=== PATIENT | female | born 1980 | race Caucasian/White ===

== ENCOUNTER 2019-02-05 05:00 | Day surgery (SDC) | payer OTHER ==
[2019-02-03 10:34] LABS: HEMATOCRIT 38.4 % (36.0-48.0); HEMOGLOBIN 12.5 g/dL (12-16); LYMPHOCYTES 30.1 % (15-50); MCH 26.2 pg (26.0-34.0); MCHC 32.6 g/dL (31.0-37.0); MCV 80.3 fL (80.0-100.0); NEUTROPHILS 65.4 % (40-80); PLATELET COUNT 234 10x3/uL (130-400); RBC 4.78 10x6/uL (4.00-5.40); WBC 5.7 10x3/uL (4.8-10.8)
[2019-02-03 10:37] LABS: CALC OSMOLALITY 278 mosm/kg (275-300); CALCIUM 8.6 mg/dL (8.5-10.1); CARBON DIOXIDE 22.4 mmol/L (21.0-32.0); CHLORIDE - SERUM 109 mmol/L (98-107); CREATININE - SERUM 0.7 mg/dL (0.6-1.3); GLUCOSE 99 mg/dL (74-106); POTASSIUM - SERUM 4.1 mmol/L (3.5-5.1); SODIUM 141 mmol/L (136-145); UREA NITROGEN 7 mg/dL (7-18); eGFR NON AFRICAN AMERICAN > 90 mL/min (90-120)
[2019-02-05] VITALS (13 sets, daily range): BP systolic 120–145; BP diastolic 63–87; Ht 165.1 cm; Wt 106.8 kg
[~2019-02-05] VITALS: Ht 165.1 cm; Wt 106.8 kg
[~2019-02-05 05:00] MED LIST: LISINOPRIL10 MG PO; MEDROXYPROGESTERONE IM
[2019-02-05] MEDS ORDERED: ATIVAN1 MG PO ×2 (05:55→05:56)
[2019-02-05] MEDS ORDERED: MINOCIN50 MG PO (05:57)
[2019-02-05 06:11] LABS: HCG URINE NEGATIVE (NEGATIVE)
--- NOTE | 2019-02-05 10:24 | NUR ---
1012 RECEIVED PATIENT WITH OPA INPLACE. RESPIRATIONS DEEP AND EVEN.
--- NOTE | 2019-02-05 10:25 | NUR ---
1024 OPA DISCONTINUED, PATIENT HOLDS HEAD UP < 10 SECONDS AND RESPONDS TO VERBAL COMMANDS
--- NOTE | 2019-02-05 11:20 | NUR ---
RECEIVED PATIENT FROM BY BED TO 1273, POST TOTAL LAP HYST.WITH BILATERAL SALPINGECTOMY BY DR. WHITTAKER, REPORT FROM RAVI PALMER, RN. PATIENT AWAKE, ALERT, ORIENTED X3. 3 LAP INCISIONS NOTED TO ABDOMEN, C/D/I, ICE PACK APPLIED TO INCISIONS OVER GOWN, ABD PALPATES SOFT. PT DENIES N/V, SOB OR DIFFICUTY BREATHING, RATING PAIN 5/10 VAGINAL PAIN/PRESSURE. MED ADM RECORD REVIEWED WITH PT. GARCIA CATH NOTED TO HAVE 200ML MILK-COLORED URINE IN BAG WITH 100CC LIGHT YELLOW URINE IN UROMETER. PT. STATES SHE WANTS CATHETER OUT NOW. SEE FLOWSHEET FOR COMPLETE ASSESSMENT. OXYGEN REMOVED PATIENT WAS BROUGHT DOWN FROM RECOVERY ON 2L PER NC. SIDE RAILS UP X2, CALL LIGHT AND PHONE WITHIN REACH, FAMILY CALLED TO ROOM.
--- NOTE | 2019-02-05 12:20 | NUR ---
PT REQUESTS TO GET UP TO THE BATHROOM TO TRY TO PEE. IVF'S STOPPED, AND IV SL FOR ASSISTANCE WITH AMBULATION, PT THEN ASSISTED UP TO BR, GAIT SLOW AND STEADY. CALL LIGHT AND PHONE WITHIN REACH.
--- NOTE | 2019-02-05 12:35 | NUR ---
ASSISTED BACK TO BED. GAIT STEADY. PATIENT FEELING NAUSEATED. SPRITE GIVEN TO SIP. IV RECONNECTED TO PUMP INFUSING AT 125CC/HR.
--- NOTE | 2019-02-05 13:22 | NUR ---
RESTING IN BED, FAMILY AT BEDSIDE. NAUSEA SOME BETTER, BUT MOVEMENT MAKES THE NAUSEA WORSE. ZOFRAN 4MG GIVEN IV PER ORDERS.
--- NOTE | 2019-02-05 14:30 | NUR ---
PT REQUESTS TO GET UP TO THE BATHROOM, IV SL, PT ASSISTED UP TO BR, GAIT SLOW AND STEADY, PT VOIDS 300 ML'S LIGHT YELLOW URINE IN [place] HAT, PERICARE DONE WITH WARM WET WASHCLOTHS, PERIPADS/PANTIES PROVIDED. PT BACK TO BED. PT REPORTS SHE IS BURPING, BUT HAS NOT PASSED GAS YET. PT REPORTS SHE IS NO LONGER NAUSEATED. PT DENIES ALL OTHER NEEDS AT THIS TIME. SRUP X2, CALL LIGHT AND PHONE WITHIN REACH.
[2019-02-05 14:37] LABS: BASOPHILS 0.1 % (0-2); EOSINOPHILS 0 % (0-7); HEMOGLOBIN 12.2 g/dL (12-16); IMMATURE GRANULOCYTES 0.5 % (0-5); LYMPHOCYTES 8.1 % (15-50); MCH 25.8 pg (26.0-34.0); MCHC 31.3 g/dL (31.0-37.0); MCV 82.5 fL (80.0-100.0); MEAN PLATELET VOLUME 10.9 fL (7.4-10.4); MONOCYTES 3.6 % (2-11); NEUTROPHILS 87.7 % (40-80); PLATELET COUNT 166 10x3/uL (130-400); RBC 4.73 10x6/uL (4.00-5.40); RDW 14.1 % (11.5-14.5); WBC 8.3 10x3/uL (4.8-10.8)
--- NOTE | 2019-02-05 15:40 | NUR ---
ASSISTED TO BATHROOM TO VOID AND BACK TO BED. NO DIZZINESS OR NAUSEA. PAIN MEDICINE GIVEN PER PATIENT REQUEST. CLEAR LIQUIDS GIVEN--JELLO, SPRITE, AND APPLE JUICE. IV SALINE LOCKED.
--- NOTE | 2019-02-05 16:45 | NUR ---
GAMAL GARCIA CRNA ON UNIT AND NOTIFIED OF PT'S C/O RIGHT EYE PAIN AND WATERING. SRNA STUDENT IN ROOM TO EVALUATE PT.
--- NOTE | 2019-02-05 18:41 | NUR ---
SITTING UP IN BED. TOLERATED REGULAR DIET WELL. FAMILY AT BEDSIDE. NO COMPLAINTS OR NEEDS AT THIS TIME.
--- NOTE | 2019-02-05 19:38 | NUR ---
RECEIVED REPORT FROM DAY SHIFT
--- NOTE | 2019-02-05 19:50 | NUR ---
ASSESSMENT PER FLOW SHEET, VS OBTAINED, SALINE LOCK IN LEFT FA INTACT WITH NO REDNESS OR EDEMA, UMB INC AND 2 LOWER LAP INC WITH DERMABOND CDI, FRESH ICE PACK TO ABD, PT DENIES FLATUS, NO BM, VOIDING WITH NO DIFFICULTY, AND REPORTS SCANT VAG BLEEDING, EMPTIED 200 MLS OF DARK YELLOW URINE FROM [place] HAT AT THIS TIME, PT RATES INC PAIN AND CRAMPING 09/18, WILL CHECK ON PAIN MED, PT REQUESTS TO AMB AT THIS TIME
--- NOTE | 2019-02-05 20:10 | NUR ---
PT AMB, GAIT STEADY, WITH THIS RN AND SPOUSE AT SIDE, PT INFORMED THAT I WILL ADM PAIN MED WHEN BACK TO ROOM, PT VERBALIZES UNDERSTANDING
--- NOTE | 2019-02-05 20:20 | NUR ---
PT BACK IN ROOM, CHANGED EXTENSION ON SALINE LOCK TO A MINI BORE EXTENSION, FLUSHED WITH 10MLS OF NS WITH NO DIFFCULTY, ADM TORADOL SIVP PER MD ORDERS, SEE EMAR, FLUSHED WITH 10MLS OF NS TO FLUSH, ADM PERCOCET PO PER MD ORDERS, SEE EMAR, FRESH H20 SERVED, PT REFUSES SCD'S AT THIS TIME, PARTIAL BEDDING CHANGE, BEDDING PROVIDED TO SPOUSE, PT DENIES FURTHER NEEDS
--- NOTE | 2019-02-05 21:40 | NUR ---
PT AMB IN HA, GAIT STEADY, WITH SPOUSE, PT RATES PAIN 5/10, DENIES NEEDS AT THIS TIME
--- NOTE | 2019-02-05 21:45 | NUR ---
PT BACK TO ROOM
--- NOTE | 2019-02-05 22:31 | NUR ---
PT RESTING IN BED, VISITING WITH FAMILY MEMBER, SPOUSE IN ROOM, PT DENIES NEEDS AT THIS TIME
--- NOTE | 2019-02-05 23:15 | NUR ---
PT GETTING READY FOR BED, VS OBTAINED, SCD'S APPLIED AND WORKING PROPERLY, PT DENIES FURTHER NEEDS AT THIS TIME
--- NOTE | 2019-02-06 00:45 | NUR ---
PT AROUSES TO OPENING OF DOOR, SCD'S REMOVED, PT UP TO BR, GAIT STEADY, VOIDED WITH NO DIFFICULTY, PT BACK TO BED, SCD'S RECONNECTED AND WORKING PROPERLY, C/O INC PAIN, ADM PERCOCET PO AND EYE DROPS IN LEFT EYE PER MD ORDERS, SEE EMAR, FRESH ICE PACK TO INC, PT DENIES FURTHER NEEDS
--- NOTE | 2019-02-06 01:31 | NUR ---
PT RESTING WITH EYES CLOSED, RESP QUIET, NO DISTRESS NOTED, LEFT UNDISTURBED AT THIS TIME
--- NOTE | 2019-02-06 02:44 | NUR ---
PT RESTING WITH EYES CLOSED, RESP QUIET, NO DISTRESS NOTED, LEFT UNDISTURBED AT THIS TIME
--- NOTE | 2019-02-06 02:49 | NUR ---
REPORT TO MCKENNA VÁSQUEZ RN
--- NOTE | 2019-02-06 03:30 | NUR ---
PT AMBULATING IN HALLWAY. ICE PROVIDED PER PT REQUEST, NO FURTHER NEEDS IDENTIFIED. WILL CONTINUE TO MONITOR
--- NOTE | 2019-02-06 04:47 | NUR ---
PATIENT SLEEPING WITH EVEN RESPIRATIONS. EASILY AROUSED TO VERBAL. TORADOL AND PERCOCET ADMINISTERED PER MD ORDERS. SEE EMAR.
--- NOTE | 2019-02-06 04:48 | NUR ---
ONE EYE DROP ADMINISTERED TO LEFT EYE PER MD ORDERS, SEE EMAR
--- NOTE | 2019-02-06 05:30 | NUR ---
LAB AT BEDSIDE
[2019-02-06 06:44] LABS: BASOPHILS 0.1 % (0-2); EOSINOPHILS 0.1 % (0-7); HEMATOCRIT 34.9 % (36.0-48.0); HEMOGLOBIN 10.9 g/dL (12-16); IMMATURE GRANULOCYTES 0.2 % (0-5); LYMPHOCYTES 19.9 % (15-50); MCH 25.8 pg (26.0-34.0); MCHC 31.2 g/dL (31.0-37.0); MCV 82.7 fL (80.0-100.0); MEAN PLATELET VOLUME 10.8 fL (7.4-10.4); MONOCYTES 10.1 % (2-11); NEUTROPHILS 69.6 % (40-80); RBC 4.22 10x6/uL (4.00-5.40); RDW 14.5 % (11.5-14.5)
[2019-02-06 06:45] LABS: PLATELET COUNT 269 10x3/uL (130-400)
--- NOTE | 2019-02-06 07:45 | NUR ---
IN TO SEE PATIENT. SITTING UP IN BED EATING BREAKFAST. ASSESSMENT COMPLETED. ATTEMPTED TO FLUSH SALINE LOCK. RESTISTANCE MET. UNABLE TO FLUSH. LINE CLAMPED AND CAPPED. PT. C/O SORE THROAT. THROAT SPRAY ORDERED PER T.O. PT. STATES EYES DROPS ARE RELIEVING PAIN AND DISCOMFORT IN LEFT EYE. STATES ABDOMEN IS SORE, BUT IS AMBULATING WITHOUT DIFFICULTY. NO REQUESTS FOR PAIN MEDICINE AT THIS TIME. FAMILY AT BEDSIDE.
--- NOTE | 2019-02-06 09:00 | NUR ---
DR. LARSON ON UNIT, MD TO ROOM TO SPEAK WITH PT. PLAN FOR DISCHARGE THIS AM.
--- NOTE | 2019-02-06 09:45 | NUR ---
PRESCRIPTIONS NOTED IN CHART LEFT FROM DR. LARSON TO BE FOR MOTRIN 800 MG ONE PO Q 8 HRS X 2 DAYS THEN Q 8 HRS PRN MILD TO MODERATE PAIN #30. SECOND PRESCRIPTION FOR PERCOCET 5 MG 1-2 PO Q 4-6H PRN PAIN, #25. DR. MEHTA GAVE PT'S A PRESCRIPTION YESTERDAY FOR PERCOCET 5 MG, IN WHICH HE HAS ALREADY TAKEN PRESCRIPTION TO THE PHARMACY AND PRESCRIPTION HAS BEEN FILLED. PRESCRIPTION WRITTEN BY DR. LARSON FOR PERCOCET 5 MG SHREDDED AND WITNESSED BY Jackie LOWERY RN.
--- NOTE | 2019-02-06 10:00 | NUR ---
SEE EMAR FOR ALL MEDS ADM BY THIS RN. IV DC'D WITH CATH INTACT, PT NATALIE WELL. DISCHARGE PLANNING IN PROCESS, PT PROVIDED WITH EXTRA PERIPADS/MESH PANTIES, AND AN EXTRA ICE PACK AT PT'S REQUEST. PT DENIES ALL OTHER NEEDS AT THIS TIME. FAMILY AT BEDSIDE.
[2019-02-06] MEDS ORDERED: IBUPROFEN600 MG PO (10:08)
[2019-02-06] MEDS ORDERED: PERCOCET 5-3251 TAB PO (10:09)
[2019-02-06] MEDS ORDERED: IBUPROFEN800 MG PO (10:15)
[2019-02-06] MEDS ORDERED: PERCOCET 5-3251 TAB (10:15)
--- NOTE | 2019-02-06 10:28 | NUR ---
PT DISCHARGED OFF UNIT IN STABLE CONDITION BY WHEELCHAIR WITH AND YOUNG SON AT HER SIDE, TO PRIVATE VEHICLE, BY Isatu PA RN.
--- NOTE | 2019-02-06 10:46 | NUR ---
PT. DISHCHARGED PRIOR TO ADMINISTRATION OF FLU AND TDAP VACCINES.
--- NOTE | 2019-02-10 08:52 | OP ---
PATIENT NAME: ANDREY KOTHARI MEDICAL RECORD: [id number] :80 LOCATION:D.OPS ADMISSION DATE: SURGEON: JOSE LUIS MEHTA DO DATE OF OPERATION: 02/05/2019 PREOPERATIVE DIAGNOSES: Abnormal uterine bleeding, pelvic pain, suspected adenomyosis. POSTOPERATIVE DIAGNOSES: Abnormal uterine bleeding, pelvic pain, suspected adenomyosis. PRIMARY SURGEON: Jose Luis Mehta DO SR. MEDIA MANAGER SURGEON: Prasanna Umanzor MD. ANESTHESIA: RADHA Segura CRNA. PROCEDURE: Total laparoscopic hysterectomy, bilateral salpingectomy, and lysis of adhesions. FINDINGS: Normal appearing external genitalia, normal appearing vaginal vault, normal appearing cervix. Uterus sounded to 10 cm. Extensive adhesions of bladder to anterior abdominal wall and anterior uterus, enlarged uterus, normal appearing bilateral fallopian tubes and bilateral ovaries, right peritoneal inclusion cyst at uterosacral ligament. SPECIMENS: Uterus, cervix, bilateral fallopian tubes. ESTIMATED BLOOD LOSS: 75 cc. IV FLUIDS: 2 liters. URINE OUTPUT: 300 cc clear urine mixed with sterile milk. Bladder had been retrograde filled with sterile milk to delineate the bladder edge. COMPLICATIONS: None. CONDITION: Stable. PROCEDURE IN DETAIL: The risks, benefits, alternatives and indications of the procedure were discussed with the patient who voiced understanding of the procedure and wished to proceed. She was taken to the OR where general anesthesia was administered and found to be adequate. She was placed in the dorsal lithotomy position. She was prepped and draped in the normal sterile fashion. A speculum was placed in the posterior aspect of the vagina and a single tooth tenaculum was used to grasp the anterior lip of the cervix. The cervix was dilated and sounded to 10 cm. The cervix was further dilated to accommodate a VCare uterine manipulator. The VCare uterine manipulator was placed and all other instruments were removed from the vagina with good hemostasis. Gloves were changed and attention was then turned to the abdomen. Marcaine was placed in the umbilical fold and the abdomen was elevated, a 5-mm incision was created in the umbilical fold and a 5-mm port was placed with the laparoscope for visualization. Pneumoperitoneum was achieved to 15 mmHg. A right lower quadrant 5-mm port was placed under direct laparoscopic visualization 2 cm superior and 2 cm anterior to the right ASIS. An 11-mm port OPERATIVE REPORT [id number] PAVATT,ANDREY R was placed in the left lower quadrant 2 cm superior and 2 cm anteromedial to the left ASIS under direct laparoscopic visualization. The uterus was elevated out of the pelvis. The patient was placed in deep Trendelenburg position. There were extensive adhesions noted to the anterior portion of the uterus to the anterior abdominal wall. These adhesions were taken down with the Thunderbeat with good hemostasis noted. At this time, the bladder was retrograde filled with sterile milk to delineate the border of the bladder. The uterus was grasped with an atraumatic grasper and was gently retracted to the right side. The left fallopian tube was removed with the Thunderbeat with good hemostasis. The left uteroovarian ligament was ligated and cut with the Thunderbeat with good hemostasis. The ovary was elevated out of the way and the ureter was seen across the external iliac artery and the pelvic brim with peristalsis. The round ligament and broad ligament were sequentially coagulated and cut on the left side and the bladder flap was created. The vesicouterine peritoneum was opened and the bladder was dissected off the lower uterine segment and the upper vagina. Uterine vessels were identified along the uterus and the Thunderbeat was used to coagulate and cut the uterine vessels. The [employer] uterine manipulator was pushed inwards and the cervical vaginal junction was delineated by the colpotomy ring, which was apparent through the tissue. The entire operation was repeated on the right side. The right fallopian tube was removed with the Thunderbeat. The uteroovarian and round ligaments were coagulated and cut. The uterine vessels were identified along the uterus, were coagulated and the vesicouterine peritoneum was taken down on that side. The vagina was entered with the Thunderbeat along the colpotomy ring and incised circumferentially along the cervicovaginal junction. The uterosacral and cardinal ligament complexes and vagina were completely detached from the cervix. The bleeding spots were coagulated. The uterus was pulled into the vagina to keep pneumoperitoneum. The vaginal cuff was closed laparoscopically with the EndoStitch with interrupted stitches of Vicryl suture. The bladder was deflated and Andrzej was placed and the pelvis was irrigated with warm sterile water. All bleeding spots were coagulated and subsequently noted to be hemostatic. Andrzej was then placed. The patient was taken out of Trendelenburg position and all the instruments were removed from the abdomen. The pneumoperitoneum was released. The skin incisions were closed with 3-0 Monocryl and Dermabond covering with good hemostasis. The uterus was removed from the vagina. All needle, lap, sponge, and instrument counts were correct times 2. The patient tolerated the procedure well. She was awakened and taken to the recovery room in stable condition. TRANSINT:[id number] Voice Confirmation ID: [id number] DOCUMENT ID: [id number] JOSE LUIS MEHTA DO at 0852 CC: [id number] DICTATION DATE: 02/05/19 1104 INTERVENTIONAL NEURORADIOLOGIST: 02/05/19 1122 [facility] 02/06/19 [id number] [place] [address]
== END 2019-02-06 10:30 | disposition home or self-care (01) ==
LOC: D.OPS 05:00 → D.PAN 07:00 → D.OPS 07:30 → D.LD 10:41 → D.OPS 02-06 10:30
PROVIDERS: ATTEND Student in an Organized Health Care Education/Training Program
DX: N93.9 Abnormal uterine and vaginal bleeding, unspecified (principal); R10.2 Pelvic and perineal pain; N80.0 Endometriosis of uterus

== ENCOUNTER → 2019-03-20 08:49 | Outpatient (CLI) | payer OTHER ==
[2019-02-05 11:56] VITALS: BMI 39.1
[~2019-03-20 08:49] MED LIST changes: +ATIVAN1 MG PO; +IBUPROFEN600 MG PO; +IBUPROFEN800 MG PO; +MINOCIN50 MG PO; +PERCOCET 5-3251 TAB; +PERCOCET 5-3251 TAB PO
== END | disposition home or self-care (01) ==
LOC: D.CT 08:49
PROVIDERS: ATTEND Student in an Organized Health Care Education/Training Program
DX: R10.9 Unspecified abdominal pain (principal)